=== PATIENT | female | born 1940 | race Caucasian/White ===

== ENCOUNTER 2016-09-09 18:41 | Emergency (ER) | payer OTHER, MEDICARE ==
[~2016-09-09] VITALS: Ht 162.6 cm; Wt 101.2 kg
[2016-09-09] MEDS ORDERED: METOPROLOL TART25 M1 PO (19:40)
[2016-09-09] MEDS ORDERED: AMLODIPINE BESY10 M1 PO (19:40)
[2016-09-09] MEDS ORDERED: SPIRONOLACTONE100 M1 PO (19:41)
[2016-09-09] MEDS ORDERED: LOSARTAN POTAS100 M1 PO (19:42)
[2016-09-09] MEDS ORDERED: ASPIRIN81 M4 PO (19:42)
--- NOTE | 2016-09-09 20:19 | ED HEADACHE COMPLAINT ---
History of Present Illness General Chief Complaint: General Adult Stated Complaint: SIB DR.BETTY JACINTO BRAIN TUMOR,WANTS ADMISSION Source: patient, family, old records Exam Limitations: no limitations Vital Signs & Intake/Output Vital Signs & Intake/Output Vital Signs Date Time Temp Pulse Resp B/P B/P Pulse O2 O2 Flow FiO2 Mean Ox Delivery Rate 09/10 1855 98.0 52 18 151/70 95 Room Air Allergies Coded Allergies: Penicillins (Intermediate, MOUTH NUMBNESS 09/09/16) shellfish derived (MOUTH NUMBNESS - LOBSTER 09/09/16) Reconcile Medications Amlodipine Besylate 10 MG TABLET 1 TAB PO DAILY BP (Reported) Aspirin (Aspirin*) 81 MG TAB.CHEW 81 MG PO DAILY HEART/BLOOD (Reported) Losartan Potassium 100 MG TABLET 100 MG PO DAILY BP (Reported) Metoprolol Tartrate 25 MG TABLET 25 MG PO BID HEART/BP (Reported) Spironolactone 100 MG TABLET 100 MG PO DAILY DIURETIC (Reported) Triage Note: PT TO ROOM3 BY WHEELCHAR FROM HOME, SENT TO ER BY HER PCP FOR RIGHT FRONTAL LOBE MASS (CT) AND DANGER OF HERNIATION (MRI). PT HAS BEEN HAVING INCREASED CONFUSION AND HEADACHES xMONTH, +URINARY INCONTINANCE, +BILAT LE EDEMA. PT AAOx3 ON ARRIVAL, DENIES ANY PAIN. PT CHANGED INTO HOSPITAL GOWN, PLACED ON STRIP TANK TENDER SB 44-50, AFEBRILE, BP 151/70, O2SAT 95% ON RA. FAMILY AT BEDSIDE. AWAITING PROVIDER EVAL. Triage Nurses Notes Reviewed? yes Past History Travel History Traveled to [place] past 21 day No Medical History Neurological: R FRONTAL LOBE MASS Cardiovascular: CHF, hypertension Musculoskeletal: ARTHRITIS Psychosocial History What is your primary language Austrian Tobacco Use: Never used ETOH Use: occasional use Review of Systems Review of Systems Constitutional: Reports: no symptoms. Eyes: Reports: no symptoms. Ears, Nose, Throat, Mouth: Reports: no symptoms. Respiratory: Reports: no symptoms. Cardiovascular: Reports: no symptoms. Gastrointestinal/Abdominal: Reports: no symptoms. Genitourinary: Reports: no symptoms. Musculoskeletal: Reports: no symptoms. Skin: Reports: no symptoms. Hematologic/Endocrine: Reports: no symptoms. Endocrine: Reports: no symptoms. Immunologic/Allergic: Reports: no symptoms. All Other Systems: Reviewed and Negative Progress Plan of Care: Orders Procedure Date/time Status TROPONIN LEVEL 09/09 1949 Active PROTHROMBIN TIME 09/09 1949 Active COMPREHENSIVE METABOLIC PANEL 09/09 1949 Active CBC WITHOUT DIFFERENTIAL 09/09 1949 Active EKG 09/09 1949 Active Current Medications Sig/Rebecca Start time Last Medication Dose Stop Time Status Admin Dexamethasone 10 MG ONCE ONE 09/10 1999 UNir (Decadron) 09/09 2000 Laboratory Tests 09/09/16 2010: Sodium Pending, Potassium Pending, Chloride Pending, Carbon Dioxide Pending, Anion Gap Pending, BUN Pending, Creatinine Pending, BUN/Creatinine Ratio Pending , Glucose Pending, Calcium Pending, Total Bilirubin Pending, AST Pending, ALT Pending, Alkaline Phosphatase Pending, Troponin I Pending, Total Protein Pending , Albumin Pending, Globulin Pending, Albumin/Globulin Ratio Pending, PT Pending, INR Pending, CBC w Diff Pending, WBC Pending, RBC Pending, Hgb Pending, Hct Pending, MCV Pending, MCH Pending, RDW Pending, Plt Count Pending, MPV Pending, PUBS MCHC Pending Departure Departure Time of Disposition: 2017 Disposition: OTHER [facility] ([facility] Condition: Stable Clinical Impression Primary Impression: Right frontal lobe lesion Secondary Impressions: Vasogenic brain edema Referrals: ALBERTO MALHOTRA MD (PCP/Family) Departure Forms: Customer Survey General Discharge Information
--- NOTE | 2016-09-09 20:24 | ED AMS/SEIZURE/WEAK/DIZZY ---
History of Present Illness General Chief Complaint: General Adult Stated Complaint: SIB DR.BETTY JACINTO BRAIN TUMOR,WANTS ADMISSION Source: patient, family, old records Exam Limitations: no limitations Vital Signs & Intake/Output Vital Signs & Intake/Output Vital Signs Date Time Temp Pulse Resp B/P B/P Pulse O2 O2 Flow FiO2 Mean Ox Delivery Rate 09/093 48 18 118/56 94 Room Air 09/09 1856 98.0 52 18 151/70 95 Room Air Allergies Coded Allergies: Penicillins (Intermediate, MOUTH NUMBNESS 09/09/16) shellfish derived (MOUTH NUMBNESS - LOBSTER 09/09/16) Reconcile Medications Amlodipine Besylate 10 MG TABLET 1 TAB PO DAILY BP (Reported) Aspirin (Aspirin*) 81 MG TAB.CHEW 81 MG PO DAILY HEART/BLOOD (Reported) Losartan Potassium 100 MG TABLET 100 MG PO DAILY BP (Reported) Metoprolol Tartrate 25 MG TABLET 25 MG PO BID HEART/BP (Reported) Spironolactone 100 MG TABLET 100 MG PO DAILY DIURETIC (Reported) Core Measure Meds Pre-Hospital aspirin Triage Note: PT TO ROOM3 BY SAM FROM HOME, SENT TO ER BY HER PCP FOR RIGHT FRONTAL LOBE MASS (CT) AND DANGER OF HERNIATION (MRI). PT HAS BEEN HAVING INCREASED CONFUSION AND HEADACHES xMONTH, +URINARY INCONTINANCE, +BILAT LE EDEMA. PT AAOx3 ON ARRIVAL, DENIES ANY PAIN. 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 FAMILY AT BEDSIDE. AWAITING PROVIDER EVAL. Triage Nurses Notes Reviewed? yes Onset: 4-6 weeks Duration: week(s):, better, waxing and waning Timing: recent history Severity: moderate No Modifying Factors: none LMP (ages 10-50): post menopausal : No Patient currently breastfeeds: No HPI: 4-6 weeks prior to admission patient has had increased confusion bland affect forgetful having episodes of leaving the stove on burning pans. On one occasion went was over [address] to the [facility] with flannel shirt became confused disoriented feeling car door open with purse in car that was parked poorly. 1 week prior to admission she complained of right-sided headache improved with Tylenol and Advil. CT and MRI of the brain were performed demonstrating right frontal lesion 5 cm3 with vasogenic edema shift and subfalcine hemorrhage. She denies fever chills nausea vomiting diarrhea abdominal pain chest pain shortness of breath dysuria rash bleeding fall Past History Travel History Traveled to [place] past 21 day No Medical History Any Pertinent Medical History? see below for history Neurological: R FRONTAL LOBE MASS Cardiovascular: CHF, hypertension Musculoskeletal: ARTHRITIS Surgical History Surgical History: non-contributory Psychosocial History What is your primary language Belarusian Tobacco Use: Never used ETOH Use: occasional use Family History Hx Contributory? No Review of Systems Review of Systems Constitutional: Reports: no symptoms. EENTM: Reports: no symptoms. Respiratory: Reports: no symptoms. Cardiovascular: Reports: no symptoms. GI: Reports: no symptoms. Genitourinary: Reports: no symptoms. Musculoskeletal: Reports: no symptoms. Skin: Reports: no symptoms. Neurological/Psychological: Reports: see HPI, cognitive dysfunction, confusion, headache. Hematologic/Endocrine: Reports: no symptoms. Immunologic/Allergic: Reports: no symptoms. All Other Systems: Reviewed and Negative Physical Exam Physical Exam General Appearance: well developed/nourished, alert, awake, anxious Head: atraumatic, normal appearance Eyes: Bilateral: normal appearance, PERRL, EOMI. Ears, Nose, Throat: normal pharynx, normal ENT inspection Neck: normal inspection, supple, full range of motion, no midline tenderness Respiratory: normal breath sounds, chest non-tender, no respiratory distress, quiet respiration, lungs clear Cardiovascular: regular rate/rhythm, normal peripheral pulses, bradycardia, norml femoral pulses equa Peripheral Pulses: 4+ carotid (R), 4+ carotid (L) Gastrointestinal: normal bowel sounds, soft, non-tender, no organomegaly Back: normal inspection, normal range of motion Extremities: normal range of motion, no ligament instability Neurologic/Psych: no motor/sensory deficits, awake, alert, oriented x 3, normal gait, normal mood/affect, skidder II-XII nml as tested Reflexes: 2+: bicep (R), bicep (L). Skin: intact, normal color, warm/dry Lymphatic: no anterior cervical luca Core Measures ACS in differential dx? No CVA/TIA Diagnosis: No Severe Sepsis Present: No Septic Shock Present: No Progress Differential Diagnosis: CVA/stroke, electrolyte imbalance, intracranial Hem., intracranial mass/tumor Plan of Care: Orders Procedure Date/time Status TROPONIN LEVEL 09/09 1949 Complete PROTHROMBIN TIME 09/09 1949 Complete COMPREHENSIVE METABOLIC PANEL 09/09 1949 Complete CBC WITHOUT DIFFERENTIAL 09/09 1949 Complete EKG 09/09 1949 Active Laboratory Tests 09/09/16 2010: Anion Gap 10, Estimated GFR 31 L, BUN/Creatinine Ratio 23.1, Glucose 103 H, Calcium 9.8, Total Bilirubin 1.1, AST 21, ALT 33, Alkaline Phosphatase 84, Troponin I < 0.01, Total Protein 6.7, Albumin 3.9, Globulin 2.8, Albumin/ Globulin Ratio 1.4, PT 11.9, INR 1.13, CBC w Diff NO MAN DIFF REQ, RBC 3.82 L, MCV 94.2, MCH 31.4 H, RDW 13.5, MPV 10.3, Gran % 67.3, Lymphocytes % 24.5, Monocytes % 5.8, Eosinophils % 1.7, Basophils % 0.7, Absolute Granulocytes 7.9 H, Absolute Lymphocytes 2.9, Absolute Monocytes 0.7 H, Absolute Eosinophils 0.2 , Absolute Basophils 0.1, PUBS MCHC 33.3 Radiology Impression: right frontal mass with vasogenic edema, shift, subfalcine hemorrhage Initial ED EKG: normal axis, normal intervals, normal p-waves, normal QRS complex, rate (sinus bradycardia) Rhythm Strip: sinus bradycardia Comments: Discussed with Dr. Denny. Cases not performed at . Discussed with Dr. Hutchison acceptcecily in transfer to [facility]. Departure Departure Time of Disposition: 2022 Disposition: OTHER [facility] ([facility]) Condition: Stable Clinical Impression Primary Impression: Right frontal lobe lesion Secondary Impressions: Vasogenic brain edema Referrals: ALBERTO MALHOTRA MD (PCP/Family) Departure Forms: Customer Survey General Discharge Information ED Attending Observation Initial Observation Note: I have seen and personally examined TITA GIBBONS on 09/09/16 at 2359. I agree with the current emergency department documentation. The disposition (admission or discharge) is uncertain at this time, she needs a period of observation for the following reason(s): The ED Nurse caring for this patient has been personally informed as to what the patient is being observed for. Observation Re-Evaluation: I have reevaluated TITA GIBBONS on 09/09/16 at 2359. The physical findings that support the continued need to observe this patient include . Observation Discharge: I have reevaluated TITA GIBBONS on 09/09/16 at 2359. The patient is: (): Stable for discharge (): To be admitted to Nursing Floor (): To be placed in Observation on Nursing Floor (): For transfer to other facility The patient was being observed for As a result of that observation, I have determined .
[2016-09-09 20:29] LABS: PT 11.9 SEC (9.4-12.5)
[2016-09-09 21:01] LABS: ABSOLUTE BASOPHIL COUNT 0.1 /CUMM (0.0-0.2); ABSOLUTE EOSINOPHIL COUNT 0.2 /CUMM (0.0-0.7); ABSOLUTE GRANULOCYTE CT 7.9 /CUMM (1.4-6.5); ABSOLUTE LYMPH COUNT 2.9 /CUMM (1.2-3.4); ABSOLUTE MONOCYTE COUNT 0.7 /CUMM (0.10-0.60); BASOPHIL % 0.7 % (0.0-2.0); EOSINOPHIL % 1.7 % (0-5); GRANULOCYTE % 67.3 % (42.2-75.2); MEAN CORPUSCULAR HGB 31.4 PG (27.0-31.0); MEAN CORPUSCULAR HGB CONC 33.3 G/DL (33.0-37.0); MEAN CORPUSCULAR VOLUME 94.2 FL (81.0-99.0); MEAN PLATELET VOLUME 10.3 FL (7.4-10.4); PLATELET COUNT 213 /CUMM (130-400); RBC DISTRIBUTION WIDTH 13.5 % (11.5-14.5); RED BLOOD CELL CT 3.82 /CUMM (4.20-5.40); WHITE BLOOD CELL COUNT 11.8 /CUMM (4.8-10.8)
[2016-09-09 21:13] VITALS: BP 118/56
== END 2016-09-09 21:36 | disposition short-term general hospital (02) ==
LOC: ERH 18:41
PROVIDERS: Emergency Medicine
DX: G93.9 Disorder of brain, unspecified (principal); G93.6 Cerebral edema
CPT/HCPCS: 93005; 93010; 96374; 96375; J0131; J1100; J1200